=== PATIENT | male | born 1940 | race Caucasian/White ===

== ENCOUNTER → 2017-04-04 | Emergency (ER) | payer MEDICARE, OTHER ==
[~2017-04-04] VITALS: Ht 160 cm; Wt 75.1 kg
[~2017-04-04] MED LIST: ASPIRIN 81 MG TAB PO ONE; AZIT250T94 PO; BENZ100C70 PO; CLOP75TA19 PO; MECLIZINE 12.5 MG TAB PO ONE; ONDANSETRON 4 MG INJ IV STA; [UNRECOGNIZED DRUG - REMARK]
[2017-04-04 16:49] VITALS: Ht 160 cm; Wt 75.1 kg
--- NOTE | 2017-04-04 19:21 | ERD ---
ER Documentation Chief Complaint Chief Complaint Dizziness x 2 days, no head injury noted HPI This is a very pleasant 76-year-old male with a known history of coronary artery disease with recent heart catheterization with a drug-eluting stent placed 1 month prior to arrival at [facility]. The patient indicates that over the past 48 hours he has had a significant amount of fatty food intake and a high salt content due to the holidays. He has had intermittent dizziness since that time. He denies a headache or changes in vision. He states the dizziness as a sensation as though the room is spinning around him. He phoned his primary care physician was concerned that his triglycerides could be high. He is requesting workup in the emergency department. He denies any chest pain or pressure that radiates to the neck arm back or jaw. He has no shortness of breath at rest or exertion. ROS All systems reviewed and are negative except as per history of present illness. Medications Home Meds Reported Medications Clopidogrel Bisulfate (Plavix) 75 Mg Tablet, 75 MG PO DAILY 05/27/11 [Pt Does Not Remember] No Conflict Check 03/25/11 Allergies Allergies: Coded Allergies: No Known Allergy (Unverified , 05/27/11) PMhx/Soc History of Surgery: Yes (ANGIOPLASTY,3 STENT PLACEMENT 12/2016) Anesthesia Reaction: No Hx Neurological Disorder: No Hx Respiratory Disorders: No Hx Cardiac Disorders: Yes (HI X 2,high cholesterol, HTN) Hx Psychiatric Problems: No Hx Miscellaneous Medical Probl: No Hx Alcohol Use: Yes (occasionally, had 2 shots of alcohol 04/03/2017) Hx Substance Use: No Hx Tobacco Use: Yes (quit) Smoking Status: Former smoker Physical Exam Vitals Vital Signs Date Time Temp Pulse Resp B/P Pulse Ox O2 Delivery O2 Flow Rate FiO2 04/04/17 20:58 98.6 58 20 114/52 96 Room Air 04/04/17 16:49 98.6 78 20 111/54 99 Physical Exam Constitutional:Well-developed. Well-nourished. HEENT:Normocephalic. Atraumatic.Pupils were equal round reactive to light. Moist mucous membranes.No tonsillar exudates. Fundoscopy exam shows sharp optic disks and venous pulsations present Neck: No nuchal rigidity. No lymphadenopathy. No posterior cervical spine tenderness or step-offs. Respiratory: Not using accessory muscles of respiration.Lungs were clear to auscultation bilaterally. No rhonchi. No rales. No wheezing. Cardiovascular: Regular rate regular rhythm.No murmurs. No rubs were appreciated.S1, S2 normal. Distal pulses are palpable 2+ bilaterally. GI: Abdomen was soft. Nontender. Non Distended. No pulsatile abdominal masses or bruits. No rebound. No guarding. Bowel sounds were present and normal. Muscle skeletal: Full range of motion of both the upper and lower extremities bilaterally.Normal muscle tone.No assymetrical calf tenderness or swelling. Skin: No petechia, no purpura. No lesions on the palms or the soles of the feet. No maculopapular rash. NEURO: Patient was alert, awake, orientated x3.No facial droop. Gait observed and normal with no ataxia.Speech had regular rate and rhythm. No focal neurological deficits. Peripheral fatigable nystagmus Result Diagram: 04/04/17190704/04/171907 Results 24 hrs Laboratory Tests Test 04/04/17 19:08 04/04/17 19:10 White Blood Count 8.310^3/ul Red Blood Count 4.3210^6/ul Hemoglobin 13.1g/dl Hematocrit 37.2% Mean Corpuscular Volume 86.1fl Mean Corpuscular Hemoglobin 30.3pg Mean Corpuscular Hemoglobin Concent 35.2g/dl Red Cell Distribution Width 13.2% Platelet Count 65826^3/UL Mean Platelet Volume 10.2fl Neutrophils % 62.9% Lymphocytes % 24.9% Monocytes % 8.4% Eosinophils % 2.9% Basophils % 0.5% Nucleated Red Blood Cells % 0.0/100WBC Neutrophils # 5.210^3/ul Lymphocytes # 2.110^3/ul Monocytes # 0.710^3/ul Eosinophils # 0.210^3/ul Basophils # 0.010^3/ul Nucleated Red Blood Cells # 0.010^3/ul Prothrombin Time 13.6Sec Prothrombin Time Ratio 1.1 INR International Normalized Ratio 1.03 Activated Partial Thromboplast Time 27.5Sec Sodium Level 138mmol/L Potassium Level 4.6mmol/L Chloride Level 103mmol/L Carbon Dioxide Level 23mmol/L Anion Gap 17 Blood Urea Nitrogen 30mg/dl Creatinine 1.47mg/dl Glucose Level 172mg/dl Calcium Level 9.0mg/dl Total Bilirubin 0.6mg/dl Direct Bilirubin 0.00mg/dl Indirect Bilirubin 0.6mg/dl Aspartate Amino Transf (AST/SGOT) 26IU/L Alanine Aminotransferase (ALT/SGPT) 32IU/L Alkaline Phosphatase 84IU/L Troponin I 0.014ng/ml Total Protein 7.1g/dl Albumin 3.8g/dl Globulin 3.30g/dl Albumin/Globulin Ratio 1.15 Amylase Level 50U/L Lipase 235U/L Triglycerides Level 286mg/dl Current Medications Medications (Trade) Dose Ordered Sig/[place] Route PRN Reason Start Time Stop Time Status Last Admin Dose Admin Ondansetron HCl (Zofran Inj) 4 mg ONCE STAT IV 04/04/17 18:55 04/04/17 18:57 DC 04/04/17 19:15 Meclizine HCl (Antivert) 25 mg ONCE ONCE PO 04/04/17 19:00 04/04/17 19:01 DC 04/04/17 19:15 Aspirin (Aspirin) 81 mg ONCE ONCE PO 04/04/17 21:30 04/04/17 21:31 04/04/17 21:10 Procedures/[facility] This patient was seen and evaluated by myself. The patient presented to the emergency department complaining of dizziness. My differential diagnosis included but was not limited to hypovolemia, myocardial infarction, pulmonary embolism, hypoglycemia, hypoxia, anemia, vasovagal episode, hypothyroidism, anxiety, peripheral or central vertigo. The patient was placed on a public space attendant, continuous pulse oximetry and IV access established by nursing staff. Patient received intravenous Zofran and his blood pressure did become slightly hypotensive with a systolic of 96/70 after he had an episode of nonbloody nonbilious emesis. Patient's triglycerides was elevated and he stated he felt comfortable following up on an outpatient basis with his physician to discuss the possibility of being placed on statins. He received aspirin in the emergency department. The patient had prerenal azotemia which was corrected with a liter bolus of normal saline. 12 Lead EKG tracing ordered and reviewed by myself showed: Normal sinus rhythm of 73 bpm and no arrhythmia. MI interval normal. QRS duration normal. No ST segment elevation. Q waves present in lead V3 and V2 No ST segment depression. No changes consistent with acute ischemia. The patient was discharged home in fair condition. They were instructed to return to the emergency department at any time if there was any worsening of their condition. The patient stated they would follow up with their PCP in the next 24-48 hours to initiate a suitable medication regimen under the care of their PCP as well as to allow their PCP to monitor any drug reactions. The patient was discharged home with prescriptions after they gave informed consent to the new medication. They were also fully informed by myself on the adverse effects and adverse drug interactions in order to provide adequate safeguards to prevent possible adverse reactions to medications. Departure Diagnosis: Primary Impression: Dizziness Condition: Fair MAO SCHREIBER Apr 04, 2017 19:20
[2017-04-04 19:40] LABS: BASOPHILS % 0.5 % (0.0-2.0); EOSINOPHILS # 0.2 10^3/ul (0.0-0.5); EOSINOPHILS % 2.9 % (0.0-7.0); HEMATOCRIT 37.2 % (42.0-52.0); HEMOGLOBIN 13.1 g/dl (14.0-18.0); LYMPHOCYTES # 2.1 10^3/ul (0.8-2.9); LYMPHOCYTES % 24.9 % (15.0-51.0); MEAN CORPUSCULAR HEMOGLOBIN 30.3 pg (29.0-33.0); MEAN CORPUSCULAR HGB CONC 35.2 g/dl (32.0-37.0); MEAN CORPUSCULAR VOLUME 86.1 fl (82.0-101.0); MEAN PLATELET VOLUME 10.2 fl (7.4-10.4); MONOCYTE # 0.7 10^3/ul (0.3-0.9); MONOCYTES % 8.4 % (0.0-11.0); NEUTROPHIL # 5.2 10^3/ul (1.6-7.5); NEUTROPHILS % 62.9 % (39.0-77.0); PLATELET COUNT 206 10^3/UL (140-415); RED BLOOD COUNT 4.32 10^6/ul (4.70-6.10); RED CELL DISTRIBUTION WIDTH 13.2 % (11.5-14.5); WHITE BLOOD COUNT 8.3 10^3/ul (4.8-10.8)
[2017-04-04 20:02] LABS: INR 1.03; PROTIME 13.6 Sec (11.9-14.9); PT RATIO 1.1
[2017-04-04 20:04] LABS: PARTIAL THROMBOPLASTIN TIME 27.5 Sec (25.0-35.0)
[2017-04-04 20:05] LABS: ALBUMIN 3.8 g/dl (3.3-4.9); ALBUMIN/GLOBULIN RATIO 1.15; BILIRUBIN,INDIRECT 0.6 mg/dl (0-1.1); BILIRUBIN,TOTAL 0.6 mg/dl (0.2-1.3); CREATININE 1.47 mg/dl (0.61-1.24); POTASSIUM 4.6 mmol/L (3.5-5.1); TOTAL PROTEIN 7.1 g/dl (6.1-8.1)
[2017-04-04 20:15] LABS: TROPONIN-I 0.014 ng/ml (0.00-0.12)
--- NOTE | 2017-04-04 20:49 | RADRPT ---
PROCEDURE: CT HEAD NON CONTRAST CLINICAL INDICATION: Headache and dizziness TECHNIQUE: Utilizing the multi-slice spiral CT scanner, multiple images were obtained through the b rain without intravenous contrast. Automatic exposure control was utilized as dose lowering techniqu e.DICOM images available One of more of the following dose reduction techniques were utilized: -automatic exposure control.-a djustment of the mA and/or kV according to patient size. -Use of iterative reconstruction technique. Radiation Dose: CTDI is 44.40 mGy. DLP is 720.23 mGy-cm. COMPARISON: None FINDINGS: Ventricular system appears unremarkable. Periventricular low density area suggestive of deep white m atter ischemic changes. Proportionate overlying brain atrophy noted. Brainstem and posterior fossa a ppears unremarkable. Globe, retrobulbar area appears unremarkable. Partial opacification of the ethm oid air cells is seen suggestive of sinus disease calcification intracranial ICA noted at the level of cavernous sinus. IMPRESSION: NO ACUTE INTRACRANIAL BLEED NOTED. RPTAT: AAOO Physician Wild Date Time Electronically viewed and signed by Physician Wild on 04/04/2017 20:48 MB/
[2017-04-04 23:02] VITALS: BP 121/52; PULSE 71; RESP 20; TEMP 98.6
== END | disposition home or self-care (01) ==
LOC: E/R 16:39
DX: R42 Dizziness and giddiness (principal); I10 Essential (primary) hypertension; I25.10 Atherosclerotic heart disease of native coronary artery without angina pectoris; Z87.891 Personal history of nicotine dependence; Z98.61 Coronary angioplasty status; Z79.01 Long term (current) use of anticoagulants
CPT/HCPCS: 70450; 80053; 82150; 83690; 84478; 84484; 85025; 85610; 85730; 96374; 99285; J2405